=== PATIENT | female | born 1985 | race Caucasian/White ===

== ENCOUNTER 2016-12-23 03:49 | Observation (INO) | payer OTHER ==
[~2016-12-23] VITALS: Ht 150 cm; Wt 57.2 kg
[2016-12-23 04:07] VITALS: BP 119/72
== END 2016-12-23 06:35 | disposition home or self-care (01) ==
LOC: 4S 03:49
PROVIDERS: ADMIT Specialist; ATTEND Specialist
DX: O36.8130 Decreased fetal movements, third trimester, not applicable or unspecified (principal); Z3A.38 38 weeks gestation of pregnancy
CPT/HCPCS: 59025; G0378

== ENCOUNTER 2017-01-10 19:35 | Inpatient (IN) | payer OTHER ==
[~2017-01-10] VITALS: Ht 150 cm; Wt 58.1 kg
[2017-01-10 20:04] VITALS: BP 111/73
[2017-01-10] MEDS ORDERED: PREN1TAB80 PO (20:08)
[2017-01-10] MEDS ORDERED: OXYTOCIN 30 UNITS/LACT RINGERS 500 ML IV ONE (21:27)
[2017-01-10] MEDS ORDERED: RINGERS SOLUTION,LACTATED 1,000 ML IV PRN (21:27)
[2017-01-10] MEDS: OXYGEN THERAPY IH SCH (21:30)
[2017-01-10] MEDS ORDERED: CITRIC ACID/SODIUM CITRATE 30 ML SOLUTION UDCUP PO PRN (21:30)
[2017-01-10] MEDS ORDERED: METOCLOPRAMIDE HCL 5 MG/ML 2 ML VIAL IVP PRN (21:30)
[2017-01-10 22:00] LABS: BASOPHILS % (AUTO) 0.1 % (0.0-2.0); EOSINOPHILS % (AUTO) 0.5 % (1.0-6.0); HEMOGLOBIN 11.5 g/dL (12.0-16.0); LYMPHOCYTES # (AUTO) 1.6 K/uL (1.0-4.8); LYMPHOCYTES % (AUTO) 17.5 % (22.0-44.0); MEAN CORPUSCULAR HGB CONC 32.8 G/dL (31.0-37.0); MEAN CORPUSCULAR VOLUME 92 fL (80-100); MONOCYTES # (AUTO) 0.7 K/uL (0.1-1.0); MONOCYTES % (AUTO) 7.3 % (2.0-9.0); NEUTROPHILS # (AUTO) 6.8 K/uL (1.8-7.7); NEUTROPHILS % (AUTO) 74.6 % (40.0-70.0); RED BLOOD CELL COUNT(AUTO) 3.82 MIL/uL (4.00-5.20); RED CELL DISTRIBUTION WIDTH 14.1 % (11.5-14.5); WHITE BLOOD COUNT (AUTO) 9.2 K/uL (4.5-11.0)
[2017-01-10] MEDS ORDERED: OXYTOCIN 30 UNITS/LACT RINGERS 500 ML IV PRN (22:30)
[2017-01-10] MEDS: RINGERS SOLUTION,LACTATED 1,000 ML IV SCH (23:08)
[2017-01-10] MEDS: FentaNYL CITRATE-PF 100 MCG/2 ML VIAL IVP PRN ×2 (23:09→23:18)
[2017-01-10] MEDS ORDERED: AMPICILLIN SODIUM 2 GM/NS 100 ML IV ONE (23:15)
[2017-01-11] MEDS ORDERED: ONDANSETRON HCL 4 MG/2 ML VIAL IVP ONE (00:54)
[2017-01-11] MEDS ORDERED: OXYTOCIN 10 UNITS/ML VIAL IM ONE (00:54)
[2017-01-11] MEDS ORDERED: PHENYLEPHRINE HCL 10 MG/ML VIAL IVP ONE (00:54)
[2017-01-11] MEDS: FentaNYL CITRATE-PF 100 MCG/2 ML VIAL IVP PRN ×2 (01:38→01:43)
[2017-01-11] MEDS ORDERED: FentaNYL/BUPIV 0.125%/NS/PF 200 ML ED PRN (03:43)
[2017-01-11] MEDS ORDERED: ONDANSETRON HCL 4 MG/2 ML VIAL IVP PRN ×3 (03:45→19:15)
[2017-01-11] MEDS ORDERED: NALBUPHINE HCL 10 MG/ML VIAL IVP PRN ×2 (03:45→19:15)
[2017-01-11] MEDS ORDERED: PROMETHAZINE HCL 25 MG/ML VIAL IM PRN (03:45)
[2017-01-11] MEDS ORDERED: DiphenhydrAMINE HCL 50 MG/ML VIAL IVP PRN ×3 (03:45→19:15)
[2017-01-11] MEDS: RINGERS SOLUTION,LACTATED 1,000 ML IV SCH ×2 (03:51→15:03)
[2017-01-11] MEDS: AMPICILLIN SODIUM 1 GM/NS 50 ML IV SCH ×4 (03:51→16:50)
[2017-01-11] MEDS ORDERED: LIDOCAINE HCL 2%/EPI 1:200,000/PF 10 ML VIAL ONE (03:57)
[2017-01-11] MEDS ORDERED: FentaNYL/BUPIV 0.125%/NS/PF 200 ML ED ONE (03:57)
[2017-01-11] MEDS ORDERED: FentaNYL CITRATE-PF 100 MCG/2 ML VIAL ONE (17:50)
[2017-01-11] MEDS ORDERED: CeFAZolin 2 GM/DEXTROSE 50 ML IV ONE (17:50)
[2017-01-11] MEDS ORDERED: MORPHINE SULFATE/PF 0.5 MG/ML 10 ML AMP ONE (17:51)
[2017-01-11] MEDS ORDERED: LIDOCAINE HCL/PF 2% 5 ML VIAL ONE (17:51)
[2017-01-11] MEDS ORDERED: SODIUM BICARBONATE 50 MEQ/50 ML VIAL ONE (17:51)
[2017-01-11] MEDS ORDERED: METHYLERGONOVINE MALEATE 0.2 MG TABLET PO PRN (19:00)
[2017-01-11] MEDS ORDERED: LANOLIN 7 GM OINTMENT TP PRN (19:00)
[2017-01-11] MEDS ORDERED: SENNA/DOCUSATE SODIUM 187-50 MG TABLET PO PRN (19:00)
[2017-01-11] MEDS ORDERED: MAGNESIUM HYDROXIDE SUSPENSION 30 ML UDCUP PO PRN (19:00)
[2017-01-11] MEDS ORDERED: OxyCODONE HCL/ACETAMINOPHEN 5-325 MG TABLET PO PRN ×2 (19:00)
[2017-01-11] MEDS ORDERED: FentaNYL CITRATE-PF 100 MCG/2 ML VIAL IVP PRN ×3 (19:15)
[2017-01-11] MEDS ORDERED: DEXAMETHASONE SOD PHOS 4 MG/ML VIAL IVP PRN (19:15)
[2017-01-11] MEDS ORDERED: PROMETHAZINE HCL 12.5 MG in SODIUM CHLORIDE 0.9% 50 ML IV PRN (19:15)
[2017-01-11] MEDS ORDERED: MEPERIDINE-PF 25 MG/ML SYRINGE IVP PRN (19:15)
[2017-01-11] MEDS ORDERED: NALOXONE HCL 0.4 MG/ML VIAL IVP PRN (19:15)
[2017-01-11] MEDS: OXYGEN THERAPY IH SCH (19:55)
[2017-01-11] MEDS: DEXTROSE 5%-LACTATED RINGERS 1,000 ML IV SCH (21:02)
[2017-01-11] MEDS: NALBUPHINE HCL 10 MG/ML VIAL IVP SCH (21:02)
[2017-01-12] MEDS: CeFAZolin 2 GM/DEXTROSE 50 ML IV SCH ×2 (01:49→11:05)
[2017-01-12] MEDS: NALBUPHINE HCL 10 MG/ML VIAL IVP SCH ×3 (03:37→17:13)
[2017-01-12] MEDS: DEXTROSE 5%-LACTATED RINGERS 1,000 ML IV SCH (05:35)
[2017-01-12 09:01] LABS: EOSINOPHILS % (AUTO) 0 % (1.0-6.0); HEMATOCRIT 30.4 % (36-46); HEMOGLOBIN 9.9 g/dL (12.0-16.0); LYMPHOCYTES # (AUTO) 1.1 K/uL (1.0-4.8); LYMPHOCYTES % (AUTO) 6.5 % (22.0-44.0); MEAN CORPUSCULAR HEMOGLOBIN 30.3 pg (26.0-34.0); MEAN CORPUSCULAR HGB CONC 32.6 G/dL (31.0-37.0); MEAN CORPUSCULAR VOLUME 93 fL (80-100); MONOCYTES # (AUTO) 0.8 K/uL (0.1-1.0); MONOCYTES % (AUTO) 4.6 % (2.0-9.0); NEUTROPHILS # (AUTO) 15.8 K/uL (1.8-7.7); RED BLOOD CELL COUNT(AUTO) 3.27 MIL/uL (4.00-5.20); RED CELL DISTRIBUTION WIDTH 14.5 % (11.5-14.5); WHITE BLOOD COUNT (AUTO) 17.8 K/uL (4.5-11.0)
[2017-01-12 09:08] LABS: NEUTROPHILS % (AUTO) 88.9 % (40.0-70.0)
[2017-01-12] MEDS ORDERED: ACETAMINOPHEN 1000 MG/ISO-OSM 100 ML IV ONE (12:45)
[2017-01-12] MEDS: IBUPROFEN 800 MG TABLET PO PRN (17:11)
[2017-01-13] MEDS: IBUPROFEN 800 MG TABLET PO PRN ×3 (00:39→15:05)
[2017-01-13] MEDS: OXYGEN THERAPY IH SCH ×2 (08:00→08:51)
[2017-01-13] MEDS ORDERED: HYDR-309 PO (15:08)
[2017-01-13] MEDS ORDERED: DSS100 PO (15:11)
[2017-01-13] MEDS ORDERED: FERR-89 PO (15:13)
== END 2017-01-13 18:05 | disposition home or self-care (01) | DRG 766 ==
LOC: OBSVTOIN 19:35 → 4S 19:35
PROVIDERS: ADMIT Specialist; ATTEND Specialist
PROC: 10D00Z1 Extraction of Products of Conception, Low, Open Approach (ICD-10-PCS; principal; 2017-01-11)
DX: O99.824 Streptococcus B carrier state complicating childbirth (principal); O62.0 Primary inadequate contractions; O77.0 Labor and delivery complicated by meconium in amniotic fluid; O63.0 Prolonged first stage (of labor); Z3A.40 40 weeks gestation of pregnancy; Z37.0 Single live birth
CPT/HCPCS: 89060; J0131; J0290; J0690; J2274; J2300; J2370; J2405; J2590; J2765; J3010; J3490; J7120